=== PATIENT | female | born 1950 | race Caucasian/White ===

== ENCOUNTER → 2016-12-14 | Outpatient (CLI) | payer MEDICARE, OTHER ==
[~2016-12-14] MED LIST: ASPIRIN81 MG PO; COREG6.25 MG PO; K-DUR20 ME1 PO; LASIX20 MG PO; LIPITOR40 MG PO; LISINOPRIL1 GM PO; NOVOLIN 70100 UNITS/ SUBQ; NOVOLOG100 U/M1 SQ; PACERONE PO; PLAVIX PO
--- NOTE | ~2016-12-14 | ST ---
Unit #: [id number] #: [id number] Patient: KENNEDY TRACEY [id number] [facility]. [place] [id number] [facility]. [place], [place] [address] [id number] O MR#: [id number] NAME: KENNEDY TRACEY : 1950 SEX: F STUDY DATE/TIME: 12/14/2016 UNIT: [facility] ROOM: STUDY DESCRIPTION: Stress test Attending Physician: Carlos Jensen M.D. Referring Physician: Carlos Jensen M.D. Primary Care Physician: Amy So A.P.R.N. CARDIOLOGY REPORT EXAM Lexiscan Cardiolite stress test. FINDINGS Baseline EKG: Normal sinus rhythm with a ventricular rate of 65 beats per minute, left atrial abnormality, Q waves in V1 and V2, poor R wave progression. Lexiscan is a four minute test with Lexiscan being injected within the first minute followed by Cardiolite. EKG during the test was equivocal to baseline. No acute ischemic changes. The patient had no complaints of chest pain, palpitations or dizziness. The patient had increased shortness of breath and fatigue which resolved in recovery phase. Maximum heart rate response with 96 beats per minute with a maximum blood pressure response of 183/89 mmHg. It is noted at the end of recovery phase the patient's blood pressure was 145/63 mmHg. Cardiolite was injected after Lexiscan within the first minute of the test. Radionuclide test pending. Please correlate with nuclear images. Dictated by... Adrianna Brown A.P.R.N. for Anupama Tracy/kevin TD: 12/14/2016 11:17 JOB #: [id number] Unit #: [id number] #: [id number] Patient: KENNEDY TRACEY CARDIOLOGY REPORT Page 1 of 1 X Adrianna Brown APRN CARDIOLOGY REPORT
--- NOTE | ~2016-12-14 | TH ---
Unit #: [id number] #: [id number] Patient: KENNEDY TRACEY [id number] [id number] [facility]. [place], [place] [address] [id number] O MR#: [id number] NAME: KENNEDY TRACEY : 1950 SEX: F STUDY DATE/TIME: 12/15/2016 UNIT: [facility] ROOM: STUDY DESCRIPTION: Cardiolite imaging. Attending Physician: Carlos Jensen M.D. Referring Physician: Carlos Jensen M.D. Primary Care Physician: Amy So A.P.R.N. CARDIOLOGY REPORT EXAM Cardiolite imaging. SUMMARY The patient received Lexiscan while walking, as well as technetium 99m Cardiolite 12.0 and approximately 33.0 mCi at rest and stress respectively. Appropriate views were obtained. FINDINGS The study is adequate. Left ventricular size is small. There is no significant patient motion either at rest or stress. There is no significant lung uptake. Summed stress score is 23, summed difference score is 0. Gated perfusion wall motion analysis demonstrates absent wall motion in the anterior wall and the apex, and severe hypokinesis of the basal anterior wall. There is mild hypokinesis of the lateral wall. End-diastolic volume is 92 ml, ejection fraction is calculated at 57%. However, this is not correct. Qualitatively the ejection fraction appears to be closer to 25%-30%. Perfusion images demonstrate absent perfusion in a distal anterior wall and anterior apex. The inferior apex has perfusion in it, but decreased. Lateral wall also shows decreased perfusion. With stress there is no change in the lateral wall perfusion, the inferoseptal perfusion, but there is some mild inferoapical ischemia. This is a very small area, and the ischemia is minimal, davy-infarct only. IMPRESSION 1. Large anteroapical infarct. 2. Very small davy-infarct ischemia only at the distal inferior apex. No other new areas of ischemia. 3. No left ventricular enlargement. 4. Significant decrease in left ventricular function. Dictated by... Ruslan Mccullough M.D. Liza TD: 12/15/2016 15:59 JOB #: [id number] Unit #: [id number] #: [id number] Patient: ALEXYKENNEDY CARDIOLOGY REPORT Page 1 of 1 X Ruslan Mccullough MD CARDIOLOGY REPORT
== END | disposition home or self-care (01) ==
LOC: CNUC 08:03
DX: I25.10 Atherosclerotic heart disease of native coronary artery without angina pectoris (principal); I25.2 Old myocardial infarction
CPT/HCPCS: 78452; 93017; A9500; J2785